=== PATIENT | female | born 1965 | race Caucasian/White ===

== ENCOUNTER 2019-06-06 20:46 | Emergency (ER) | payer OTHER ==
[~2019-06-06] VITALS: Ht 170.2 cm; Wt 77.1 kg
[2019-06-06] MEDS ORDERED: IRONUP15 MG/0.5 PO (20:59)
[2019-06-06] MEDS ORDERED: VITAMIN B-COMP1 EAC3 PO (21:00)
[2019-06-06] MEDS ORDERED: VITAMIN D35000 UNIT/ PO (21:00)
[2019-06-06] MEDS ORDERED: TRAMADOL HCL50 MG PO (22:09)
[2019-06-06] MEDS ORDERED: CEPHALEXIN500 MG PO (22:09)
--- OUTSIDE RECORDS SUMMARY | 2019-06-06 23:08 | XMS ---
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 CARE PROVIDERS MARLENA APARICIO [facility] Current PHONE: Unknown [facility] PATIENT Primary Care [place] PHONE: Unknown ARLET BECKHAM Primary Care Mary CASTAÑEDA PHONE: Unknown ALESSANDRA MENDIOLA [facility] Current PHONE: Unknown [place] has no Care Guidelines for this patient. Angelika VISIT COUNT (12 MO.) 3 [place] [address] Kvng MejiaElizabeth [place] TOTAL 6 NOTE: Visits indicate total known visits. ED/UCC VISIT TRACKING (12 MO.) 06/06/2019 20:47 [facility] [place] TYPE: Emergency COMPLAINT: - DENTAL PAIN 03/19/2019 16:44 [facility] [place] TYPE: Emergency DIAGNOSES: - weakness - Periapical abscess without sinus - Other intestinal malabsorption 03/01/2019 13:19 [facility] [place] TYPE: Emergency DIAGNOSES: - vomiting - Other lesions of oral mucosa - Anemia, unspecified 01/21/2019 22:44 [facility] [place] TYPE: Emergency DIAGNOSES: - Illness, unspecified - Poss flu - Anemia, unspecified - Myalgia, unspecified site 10/04/2018 16:42 [facility] [place] TYPE: Emergency DIAGNOSES: - Nutritional anemia, unspecified - Weakness - Hypokalemia - Heart and Respiratory Complaints - Thyrotoxicosis, unspecified without thyrotoxic crisis or storm - Impetigo, unspecified 07/05/2018 19:02 [facility] [place] TYPE: Emergency DIAGNOSES: - Stroke Like Symptoms - Weakness - Hyperglycemia, unspecified - Iron deficiency anemia, unspecified INPATIENT VISIT TRACKING (12 MO.) No inpatient visits to display in this time frame [id number]
== END 2019-06-06 22:36 | disposition home or self-care (01) ==
LOC: ED 20:46
DX: K08.89 Other specified disorders of teeth and supporting structures (principal); F17.200 Nicotine dependence, unspecified, uncomplicated; Z79.899 Other long term (current) drug therapy
CPT/HCPCS: 99282

== ENCOUNTER 2019-06-12 20:45 | Emergency (ER) | payer OTHER ==
[~2019-06-12] VITALS: Ht 170.2 cm; Wt 77.1 kg
[~2019-06-12 20:45] MED LIST: CEPHALEXIN500 MG PO; IRONUP15 MG/0.5 PO; TRAMADOL HCL50 MG PO; VITAMIN B-COMP1 EAC3 PO; VITAMIN D35000 UNIT/ PO
--- OUTSIDE RECORDS SUMMARY | 2019-06-12 20:50 | XMS ---
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 Angelika VISIT COUNT (12 MO.) 3 [facility] [place] [address] Kvng Erica Ding 2 [facility] [place] TOTAL 7 NOTE: Visits indicate total known visits. ED/UCC VISIT TRACKING (12 MO.) 06/12/2019 20:47 [facility] [place] TYPE: Emergency COMPLAINT: - DENTAL PAIN 06/06/2019 20:47 [facility] [place] TYPE: Emergency COMPLAINT: - DENTAL PAIN DIAGNOSES: - Other specified disorders of teeth and supporting structures - Other custodial (current) drug therapy - Nicotine dependence, unspecified, uncomplicated 03/19/2019 16:44 [facility] [place] TYPE: Emergency DIAGNOSES: - weakness - Periapical abscess without sinus - Other intestinal malabsorption 03/01/2019 13:19 [facility] [place] TYPE: Emergency DIAGNOSES: - vomiting - Other lesions of oral mucosa - Anemia, unspecified 01/21/2019 22:44 [facility] [place] TYPE: Emergency DIAGNOSES: - Illness, unspecified - Poss flu - Anemia, unspecified - Myalgia, unspecified site 10/04/2018 16:42 [facility] [place] TYPE: Emergency DIAGNOSES: - Nutritional anemia, unspecified - Weakness - Hypokalemia - Heart and Respiratory Complaints - Thyrotoxicosis, unspecified without thyrotoxic crisis or storm - Impetigo, unspecified 07/05/2018 19:02 [facility] [place] [place] TYPE: Emergency DIAGNOSES: - Stroke Like Symptoms - Weakness - Hyperglycemia, unspecified - Iron deficiency anemia, unspecified INPATIENT VISIT TRACKING (12 MO.) No inpatient visits to display in this time frame [id number]
[2019-06-12] MEDS ORDERED: CLINDAMYCIN HC150 MG PO (21:43)
== END 2019-06-12 22:22 | disposition home or self-care (01) ==
LOC: ED 20:45
DX: K08.89 Other specified disorders of teeth and supporting structures (principal); F17.200 Nicotine dependence, unspecified, uncomplicated; Z79.899 Other long term (current) drug therapy
CPT/HCPCS: 99282

== ENCOUNTER 2019-07-02 14:57 | Emergency (ER) | payer OTHER ==
[~2019-07-02] VITALS: Ht 170.2 cm; Wt 77.1 kg
[~2019-07-02 14:57] MED LIST changes: +CLINDAMYCIN HC150 MG PO
--- OUTSIDE RECORDS SUMMARY | 2019-07-02 15:00 | XMS ---
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 - [facility] - 2 Visits in 30 Days CARE PROVIDERS JM COLLIER Physician 06/13/2019-Current PHONE: [phone] MARLENA APARICIO [facility] Current PHONE: Unknown AZAR MULLIGAN Primary Care [facility] PHONE: Unknown ARLET BECKHAM Primary [facility] MADDY PHONE: Unknown ALESSANDRA Torres Primary Care Current PHONE: Unknown [place] has no Care Guidelines for this patient. ELynsey VISIT COUNT (12 MO.) 3 [facility] [employer] 2 Kvng Ding 3 [facility] [place] TOTAL 8 NOTE: Visits indicate total known visits. ED/UCC VISIT TRACKING (12 MO.) 07/02/2019 14:57 [facility] [place] TYPE: Emergency COMPLAINT: - DENTAL PAIN 06/12/2019 20:47 [facility] [place] TYPE: Emergency COMPLAINT: - DENTAL PAIN DIAGNOSES: - Other specified disorders of teeth and supporting structures - Other termite treater (current) drug therapy - Nicotine dependence, unspecified, uncomplicated 06/06/2019 20:47 [facility] [place] TYPE: Emergency COMPLAINT: - DENTAL PAIN DIAGNOSES: - Other specified disorders of teeth and supporting structures - Other usp (current) drug therapy - Nicotine dependence, unspecified, uncomplicated 03/19/2019 16:44 [facility] [place] TYPE: Emergency DIAGNOSES: - weakness - Periapical abscess without sinus - Other intestinal malabsorption 03/01/2019 13:19 [facility] [employer] [place] TYPE: Emergency DIAGNOSES: - vomiting - Other lesions of oral mucosa - Anemia, unspecified 01/21/2019 22:44 [facility] [place] TYPE: Emergency DIAGNOSES: - [...] visits to display in this time frame [id number]
== END 2019-07-02 16:35 | disposition home or self-care (01) ==
LOC: ED 14:57
DX: K08.89 Other specified disorders of teeth and supporting structures (principal)

== ENCOUNTER 2019-07-07 15:36 | Emergency (ER) | payer OTHER ==
[~2019-07-07] VITALS: Ht 170.2 cm; Wt 77.1 kg
--- OUTSIDE RECORDS SUMMARY | 2019-07-07 15:38 | XMS ---
PreManage Notification: MARY PATEL Security Recovery Rn Events No recent Security Events currently on file CRITERIA MET - Group Notification - 6 ED Visits in 6 Months - [facility] - [facility] - 2 Visits in 30 Days CARE PROVIDERS JM COLLIER Physician 06/13/2019-Current PHONE: [phone] MARLENA APARICOI [facility] Current PHONE: Unknown AZAR MULLIGAN Primary Care [facility] PHONE: Unknown ARLET BECKHAM Primary [facility] MADDY PHONE: Unknown ALESSANDRA Torres Primary Care Current PHONE: Unknown [place] has no Care Guidelines for this patient. ELynsey VISIT COUNT (12 MO.) 3 [email or web address] Kvng [place] TOTAL 8 NOTE: Visits indicate total known visits. ED/UCC VISIT TRACKING (12 MO.) 07/07/2019 15:36 [facility] [place] MejiaElizabeth [place] TYPE: Emergency COMPLAINT: - POSS HEAT STROKE, BLURRED VISION 07/02/2019 14:57 [facility] [place] TYPE: Emergency COMPLAINT: - DENTAL PAIN, MSE TO HOME DIAGNOSES: - Other specified disorders of teeth and supporting structures 06/12/2019 20:47 [facility] [place] TYPE: Emergency COMPLAINT: - DENTAL PAIN DIAGNOSES: - Other specified disorders of teeth and supporting structures - Other prison (current) drug therapy - Nicotine dependence, unspecified, uncomplicated 06/06/2019 20:47 [facility] [place] MejiaElizabeth [place] TYPE: Emergency COMPLAINT: - DENTAL PAIN DIAGNOSES: - Other specified disorders of teeth and supporting structures - Other prison (current) drug therapy - Nicotine dependence, unspecified, uncomplicated 03/19/2019 16:44 [facility] [place] TYPE: Emergency DIAGNOSES: - weakness - Periapical abscess without sinus - Other intestinal malabsorption 03/01/2019 13:19 [facility] [place] TYPE: Emergency DIAGNOSES: - vomiting - Other lesions of oral mucosa - Anemia, unspecified 01/21/2019 22:44 [facility] [place] TYPE: Emergency DIAGNOSES: - Illness, unspecified - Poss flu - Anemia, unspecified - Myalgia, unspecified site 10/04/2018 16:42 [facility] [place] TYPE: Emergency DIAGNOSES: - Nutritional anemia, unspecified - Weakness - Hypokalemia - Heart and Respiratory Complaints - Thyrotoxicosis, unspecified without thyrotoxic crisis or storm - Impetigo, unspecified INPATIENT VISIT TRACKING (12 MO.) No inpatient visits to display in this time frame [id number]
[2019-07-07] MEDS ORDERED: PROMETHAZINE HC25 M1 PO (15:52)
[2019-07-07] MEDS ORDERED: CHLORHEXIDINE473 ML MM (15:52)
[2019-07-07] MEDS ORDERED: VITAMIN B COMP1 EACH PO (15:53)
[2019-07-07] MEDS ORDERED: LORAZEPAM1 MG PO (15:53)
[2019-07-07] MEDS ORDERED: IRON325 M1 PO (15:53)
[2019-07-07] MEDS ORDERED: NORCO 5-325 TA1 EACH PO (15:53)
--- NOTE | 2019-07-08 12:44 | EKG ---
[facility] [address] [place], [place] [address] Signed Normal sinus rhythm Septal infarct , age undetermined Abnormal ECG No previous ECGs available Confirmed by ELLEN WHITE DO ([id number]) on 07/08/2019 12:44:19 PM Electronically Signed By: ELLEN WHITE DO 07/08/19 1244 PATIENT NAME: MARY PATEL Electrocardiogram DATE OF : 69 PHYSICIAN: ELLEN WHITE DO REPORT #: [id number] REPORT IS CONFIDENTIAL AND NOT TO BE RELEASED WITHOUT AUTHORIZATION
== END 2019-07-07 18:49 | disposition home or self-care (01) ==
LOC: ED 15:36
DX: T67.5XXA Heat exhaustion, unspecified, initial encounter (principal); R07.89 Other chest pain; D64.9 Anemia, unspecified; F17.200 Nicotine dependence, unspecified, uncomplicated; Z79.899 Other long term (current) drug therapy
CPT/HCPCS: 71045; 80053; 82550; 84484; 85025; 93005; 93010; 99284-25; 99406